=== PATIENT | male | born 1995 | race Caucasian/White ===

== ENCOUNTER 2018-02-26 01:54 | Emergency (ER) | payer SELFPAY ==
[2018-02-26] MEDS ORDERED: DOXYcycline CAP(*) 100 MG PO ONE (02:19)
--- NOTE | 2018-02-26 02:47 | ED ---
Demetrius Reaves Elizabeth, scribed for Se Bro MD on 02/26/18 at 0224 . Skin Complaint - HPI Summary HPI Summary: This patient is a 22 year old M presenting to [facility] with a chief complaint of bulls eye rash on his left thigh since 1 day ago. The patient reports that he received the tick bite and had the tick removed 2 weeks ago. The patient rates the pain 0/10 in severity. Symptoms aggravated by nothing. Symptoms alleviated by nothing. - History of Current Complaint Chief Complaint: EDRashSkinAbscess Time Seen by Provider: 02/26/18 02:02 Stated Complaint: GENERAL ILLNESS Hx Obtained From: Patient Onset/Duration: Started Days Ago - 1 day, Atraumatic, Still Present Timing: Constant, Lasting Days - 1 day Onset Severity: Mild Current Severity: Mild Pain Intensity: 0 Pain Scale Used: 0-10 Numeric Skin Location: Leg - left inner thigh Character: Redness Aggravating Symptom(s): Nothing Alleviating Symptom(s): Nothing Related History: Insect Bite/Sting - tick bite 2 weeks ago - Allergy/Home Medications Allergies/Adverse Reactions: Allergies Allergy/AdvReac Type Severity Reaction Status Date / Time No Known Allergies Allergy Verified 02/26/18 02:00 PMH/Surg Hx/FS Hx/Imm Hx Endocrine/Hematology History: Denies: Hx Diabetes Opthamlomology History: Denies: Hx Legally Blind EENT History: Denies: Hx Deafness Infectious Disease History: No Infectious Disease History: Denies: Traveled Outside the [place] in Last 30 Days - Family History Known Family History: Positive: None - Social History Alcohol Use: None Substance Use Type: Reports: None Smoking Status (MU): Never Smoked Tobacco Review of Systems Negative: Epistaxis Negative: Cough Negative: Vomiting Skin: Other - bulls eye rash on left inner thigh All Other Systems Reviewed And Are Negative: Yes Physical Exam - Summary Physical Exam Summary: VITAL SIGNS: Reviewed. GENERAL: Patient is a well-developed and nourished MALE who is lying comfortable in the stretcher. Patient is not in any acute respiratory distress. HEAD AND FACE: No signs of trauma. No ecchymosis, hematomas or skull depressions. No sinus tenderness. EYES: PERRLA, EOMI x 2, No injected conjunctiva, no nystagmus. EARS: Hearing grossly intact. Ear canals and tympanic membranes are within normal limits. MOUTH: Oropharynx within normal limits. NECK: Supple, trachea is midline, no adenopathy, no JVD, no carotid bruit, no c- spine tenderness, neck with full ROM. CHEST: Symmetric, no tenderness at palpation LUNGS: Clear to auscultation bilaterally. No wheezing or crackles. CVS: Regular rate and rhythm, S1 and S2 present, no murmurs or gallops appreciated. ABDOMEN: Soft, non-tender. No signs of distention. No rebound no guarding, and no masses palpated. Bowel sounds are normal. EXTREMITIES: FROM in all major joints, no edema, no cyanosis or clubbing. NEURO: Alert and oriented x 3. No acute neurological deficits. Speech is normal and follows commands. SKIN: Dry and warm, ACM rash on inner aspect of left upper thigh Triage Information Reviewed: Yes Vital Signs On Initial Exam: Initial Vitals Temp Pulse Resp BP Pulse Ox 99.9 F 79 16 139/96 100 02/26/18 01:57 02/26/18 01:57 02/26/18 01:57 02/26/18 01:57 02/26/18 01:57 Vital Signs Reviewed: Yes Diagnostics - Vital Signs Vital Signs Temp Pulse Resp BP Pulse Ox 02/26/18 01:57 99.9 F 79 16 139/96 100 - Laboratory Lab Statement: Any lab studies that have been ordered have been reviewed, and results considered in the medical decision making process. Course/Dx - Course Course Of Treatment: This patient is a 22 year old M reporting an ACM rash on the inner aspect of his left thigh since 1 day ago. The patient reports that he received the tick bite and had the tick removed 2 weeks ago. Patient will be discharged with dx of lyme disease, prescription for doxycyline and follow up from [facility] physician referral in 6 weeks for a lyme test. The patient is agreeable with this plan. - Diagnoses Provider Diagnoses: Lyme disease Discharge - Sign-Out/Discharge Documenting (check all that apply): Discharge/Admit/Transfer - Discharge Plan Condition: Stable Disposition: HOME Discharge Disposition Comment: discharge home Prescriptions: DOXYcycline CAP(*) [DOXYcycline 100MG CAP(*)] 100 mg PO BID #[id number] Patient Education Materials: Lyme Disease (ED), Tick Bite (ED) Referrals: [facility] PHYSICIAN REFERRAL [Outside] - 04/12/18 (Follow up with primary care physician in 6 weeks for lyme test.) Additional Instructions: Follow up with [facility] physician referral for a lyme test in 6 weeks. Return to the emergency department with any new or worsening symptoms. The documentation as recorded by the Demetrius albright Elizabeth accurately reflects the service I personally performed and the decisions made by , Se Bro MD.
[2018-02-26 02:55] VITALS: BP 135/74
== END 2018-02-26 02:54 | disposition home or self-care (01) ==
LOC: ED 01:54
DX: A69.20 Lyme disease, unspecified (principal)
CPT/HCPCS: 36415; 86703; 99282; A9270-GY